=== PATIENT | male | born 1950 | race Caucasian/White ===

== ENCOUNTER → 2023-01-08 | Outpatient (CLI) | payer MEDICARE, SELFPAY ==
--- NOTE | 2023-01-08 11:00 | PET_ITS ---
EXAMINATION: FDG PET/CT ? INDICATIONS: 72-year-old male with a history of apparent pulmonary nodularity. ? COMPARISON EXAMINATION: None available. ? INDEX LESION SIZE SUV INTERPRETATION Left upper and right upper lung field, upper lobes 26.7 mm left, 12.3 mm right 6.1 left, 8.4 right Fulfills quantitative criteria for viable neoplasm, histopathologic analysis is recommended ? TECHNIQUE: Following the intravenous administration of 12.65 mCi of F-18 deoxyglucose via the left antecubital fossa, multiplanar image acquisitions of the head, neck, chest, abdomen and pelvis to the level of the midthigh, obtained at one-hour post radiopharmaceutical administration contemporaneously interpreted with the current CT of the chest, abdomen and pelvis dated 01/08/2023 via coregistration reveal: SERUM GLUCOSE LEVEL:? 120 mg/dL? HEIGHT:?? 65 inches WEIGHT:?? 240 pounds ? FINDINGS: ? HEAD/NECK:? There is no evidence of abnormal increased glucose metabolism in the pharyngeal mucosal space, parapharyngeal space, oropharynx, bilateral-lateral and anterior neck, hypopharynx and distribution of the larynx. ? The visualized portion of the cerebral cortical-subcortical structures demonstrate symmetric and preserved glucose metabolism. ? CHEST: Increased FDG concentration is defined in the bilateral upper lung sanches, right and left upper lobes, generating a calculated standard uptake values of 6.1 and 8.4 for the left and right lung. The maximal axial diameter of the corresponding parenchymal densities is 26.7 and 12.3 mm, respectively. ? CT of the chest demonstrates the following anatomic characteristics: Centrilobular emphysematous changes are defined in the bilateral upper-mid lung zones. Calcified pleural plaque formation is noted in the bilateral hemithorax Additional calcified and noncalcified parenchymal densities noted in the bilateral hemithorax are nonglucose avid. Calcified and noncalcified mediastinal soft tissue is ametabolic. Atherosclerotic calcification is defined in the thoracic aorta without evidence of dilatation, aneurysm formation. Coronary artery calcification is observed. There is calcification of the pericardium. ? ABDOMEN/PELVIS:? Normal physiologic distribution of the radiopharmaceutical is identified in the hepatic (4.9) and splenic parenchyma, both renal units, urinary bladder, and visualized intestinal tract. ? CT of the abdomen and pelvis is remarkable for the following: Fat containing inguinal hernias are identified bilaterally. Right and left inguinal soft tissue densities are ametabolic. There is calcification within the prostate gland. Thickening of the posterior urinary bladder wall is defined, without evidence of increased tracer uptake. Focal calcified granuloma formation is noted within the splenic parenchyma. ? SKELETAL:? Degenerative changes defined in the thoracic and lumbar spine demonstrate no evidence of increased glucose metabolism. Facilitated uptake is noted in the left anterior chest wall-rib at the costochondral junction, linear in presentation in the longitudinal plane most consistent with trauma-fracture. ? PET/PET/CT Tumor Base -Thigh Init IMPRESSION: 1. 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 Histopathologic analysis is recommended. (Mekhi et al, Journal of Nuclear Medicine, 32:1, 1991). 2.? Facilitated uptake noted in the left anterior chest wall is most consistent with trauma-fracture. 3. No other definitive quantitatively significant hypermetabolic foci are defined. Electronic Signature Kelvin Sepulveda D.O. Accurate Quantification of SUVs for this report are calculated using the exclusive [employer] (T[employer]) Technology. ([place] Patent No. [id number] 983 B2 [phone] [place] patent [phone]). Standardization and correction of the FDG SUV metric via [employer] technology allow for vendor non-specific objective quantitative examination comparison and optimization of the sensitivity and specificity of the FDG PET-CT examination. . [email or web address] Electronically Signed: Kelvin Sepulveda DO at 23:54 EST ,
== END | disposition home or self-care (01) ==
LOC: ONC 10:32
PROVIDERS: Referring Provider Nurse Practitioner Family; Visit Provider Nurse Practitioner Family
DX: R91.8 Other nonspecific abnormal finding of lung field (principal)
CPT/HCPCS: 78815; A9552